=== PATIENT | male | born 1940 | race Caucasian/White ===

== ENCOUNTER 2021-03-10 11:21 | Emergency (ER) | payer MEDICARE, OTHER ==
[~2021-03-10 11:21] MED LIST: AMARYL2 MG PO; AMLODIPINE BES2.5 MG PO; ASPIRIN CHEWABL81 MG PO; FINASTERIDE5 MG PO; METFORMIN HCL500 M3 PO; METOPROLOL SUCC25 MG PO; PRAVASTATIN SOD40 MG PO
[2021-03-10 13:10] LABS: BILIRUBIN NEGATIVE (NEGATIVE); BLOOD NEGATIVE Ery/uL (NEGATIVE); COLOR YELLOW (YELLOW); GLUCOSE (U) NORMAL (NORMAL); LEUKOCYTES 2+ Leu/uL (NEGATIVE); NITRITE POSITIVE (NEGATIVE); PROTEIN NEGATIVE (NEGATIVE); SPECIFIC GRAVITY 1.025 (1.001-1.030); UROBILINOGEN 0.2 mg/dL (0.2-1.0); pH 6.5 (5.0-9.0)
[2021-03-10 13:11] LABS: CLARITY HAZY (CLEAR)
[2021-03-10 13:15] LABS: BASOPHIL 0.2 % (0-2); EOSINOPHIL 0.3 % (0-7); HCT 37.2 % (42.0-52.0); HGB 12.4 g/dl (13.2-18.0); LYMPHOCYTE 20.5 % (15-48); MCH 31.7 pg (25.0-31.0); MCHC 33.3 g/dL (32.0-36.0); MCV 95.1 fL (78.0-100.0); MPV 9.6 fL (6.0-9.5); NEUTROPHIL 71.4 % (41-80); NRBC 0; PLT 179 K/uL (150-400); RBC 3.91 M/uL (4.70-6.00); RDW 12.7 % (11.5-14.0); WBC 6.5 K/uL (4.0-10.5)
[2021-03-10 13:18] LABS: URINARY WBC 20-50
[2021-03-10 13:19] LABS: BACTERIA TRACE
[2021-03-10 14:21] LABS: CREATININE 0.83 mg/dL (0.67-1.17); POTASSIUM 3.8 mmol/L (3.5-5.1)
== END 2021-03-10 15:55 | disposition home or self-care (01) ==
LOC: FER 11:21
PROVIDERS: Nurse Practitioner Family
DX: N39.0 Urinary tract infection, site not specified (principal); I10 Essential (primary) hypertension
CPT/HCPCS: 36415; 80048; 81001; 83605; 85025; 99284

== ENCOUNTER 2021-05-01 11:50 | Emergency (ER) | payer MEDICARE, OTHER ==
[2021-05-01 13:46] LABS: BASOPHIL 0.2 % (0-2); EOSINOPHIL 0.5 % (0-7); HCT 40.5 % (42.0-52.0); HGB 13.8 g/dl (13.2-18.0); LYMPHOCYTE 22.2 % (15-48); MCH 32.4 pg (25.0-31.0); MCHC 34.1 g/dL (32.0-36.0); MCV 95.1 fL (78.0-100.0); MONOCYTE 5.2 % (0-12); MPV 9.5 fL (6.0-9.5); NEUTROPHIL 71.3 % (41-80); NRBC 0; PLT 178 K/uL (150-400); RBC 4.26 M/uL (4.70-6.00); RDW 12.6 % (11.5-14.0); WBC 8.3 K/uL (4.0-10.5)
[2021-05-01 14:09] LABS: BUN/CREAT RATIO (CALC) 16.7 RATIO; CREATININE 0.72 mg/dL (0.67-1.17); POTASSIUM 4.3 mmol/L (3.5-5.1)
[2021-05-01] MEDS ORDERED: CEPHALEXIN500 MG PO (14:54)
== END 2021-05-01 15:22 | disposition home or self-care (01) ==
LOC: FER 11:50
PROVIDERS: Emergency Medicine
DX: N39.0 Urinary tract infection, site not specified (principal); E11.9 Type 2 diabetes mellitus without complications; Z88.5 Allergy status to narcotic agent
CPT/HCPCS: 36415; 80048; 85025; 87040; 99283; J0696

== ENCOUNTER 2021-05-12 14:39 | Day surgery (SDCO) | payer MEDICARE, OTHER ==
[~2021-05-12] VITALS: Ht 170.2 cm; Wt 82.2 kg
[~2021-05-12 14:39] MED LIST changes: +CEPHALEXIN500 MG PO
== END 2021-05-12 22:07 | disposition home or self-care (01) ==
LOC: FICU 14:39 → FOD 14:39 → FICU 14:41
PROVIDERS: ADMIT Internal Medicine
DX: N39.0 Urinary tract infection, site not specified (principal)
CPT/HCPCS: G0378; J0692

== ENCOUNTER 2021-11-16 11:54 | Emergency (ER) | payer MEDICARE, OTHER ==
[2021-11-16 13:14] LABS: BASOPHIL 0.3 % (0-2); EOSINOPHIL 0.4 % (0-7); HCT 38.3 % (42.0-52.0); HGB 12.8 g/dl (13.2-18.0); LYMPHOCYTE 27.3 % (15-48); MCH 31.8 pg (25.0-31.0); MCHC 33.4 g/dL (32.0-36.0); MCV 95.3 fL (78.0-100.0); MONOCYTE 5.5 % (0-12); MPV 9.5 fL (6.0-9.5); NEUTROPHIL 65.8 % (41-80); NRBC 0; PLT 184 K/uL (150-400); RBC 4.02 M/uL (4.70-6.00); RDW 12.6 % (11.5-14.0); WBC 7.1 K/uL (4.0-10.5)
[2021-11-16 13:17] LABS: INR 0.98 (0.9-1.2); PROTHROMBIN TIME 12.7 SECONDS (11.9-13.9); PTT 26.6 SECONDS (24.9-34.6)
[2021-11-16 13:25] LABS: IRON % SATURATION 27.7 %SAT (20-50)
[2021-11-16 13:46] LABS: ALKALINE PHOSHATASE 101 U/L (46-116); ALT 33 U/L (16-63); AST 22 U/L (15-37); BILIRUBIN - TOTAL 0.3 mg/dL (0.2-1.0); BUN 11 mg/dL (7-18); BUN/CREAT RATIO (CALC) 15.3 RATIO; CHLORIDE 100 mmol/L (98-107); CO2 (BICARBONATE) 31 mmol/L (21-32); CREATININE 0.72 mg/dL (0.67-1.17); GLOBULIN (CALCULATION) 3.1 g/dL; GLUCOSE 169 mg/dL (74-106); MAGNESIUM 1.5 mg/dL (1.8-2.4); POTASSIUM 4.4 mmol/L (3.5-5.1); TOTAL PROTEIN 6.1 g/dL (6.4-8.2)
[2021-11-16 13:52] LABS: C-REACTIVE PROTEIN < 0.20 mg/dL (<=0.90)
[2021-11-16 13:58] LABS: BILIRUBIN NEGATIVE (NEGATIVE); BLOOD NEGATIVE Ery/uL (NEGATIVE); CLARITY CLEAR (CLEAR); COLOR YELLOW (YELLOW); GLUCOSE (U) NORMAL (NORMAL); LEUKOCYTES NEGATIVE Leu/uL (NEGATIVE); NITRITE NEGATIVE (NEGATIVE); PROTEIN NEGATIVE (NEGATIVE); UROBILINOGEN 0.2 mg/dL (0.2-1.0); pH 7.5 (5.0-9.0)
[2021-11-16 14:04] LABS: MARIJUANA (THC) NEGATIVE (NEGATIVE)
[2021-11-16 14:05] LABS: AMPHETAMINES NEGATIVE (NEGATIVE); BARBITURATES NEGATIVE (NEGATIVE); ECSTASY (MDMA) NEGATIVE (NEGATIVE); METHADONE NEGATIVE (NEGATIVE); OPIATES NEGATIVE (NEGATIVE); OXYCODONE NEGATIVE (NEGATIVE)
== END 2021-11-16 15:27 | disposition home or self-care (01) ==
LOC: FER 11:54
PROVIDERS: Emergency Medicine
DX: F05 Delirium due to known physiological condition (principal); Z20.822 Contact with and (suspected) exposure to COVID-19; Z88.5 Allergy status to narcotic agent
CPT/HCPCS: 36415; 70450; 80053; 80305; 81003; 82140; 83540; 83550; 83735; 83880; 84145; 84439; 84443; 84484; 85025; 85610; 85730; 86140; 93005; G0480; U0002

== ENCOUNTER 2021-12-09 09:12 | Emergency (ER) | payer MEDICARE, OTHER ==
[2021-12-09 10:31] LABS: BILIRUBIN NEGATIVE (NEGATIVE); BLOOD NEGATIVE Ery/uL (NEGATIVE); CLARITY CLEAR (CLEAR); COLOR YELLOW (YELLOW); GLUCOSE (U) NORMAL (NORMAL); LEUKOCYTES 2+ Leu/uL (NEGATIVE); NITRITE NEGATIVE (NEGATIVE); PROTEIN NEGATIVE (NEGATIVE); SPECIFIC GRAVITY 1.025 (1.001-1.030); UROBILINOGEN 0.2 mg/dL (0.2-1.0)
[2021-12-09 10:40] LABS: BASOPHIL 0.3 % (0-2); EOSINOPHIL 0.7 % (0-7); HCT 35.4 % (42.0-52.0); HGB 11.8 g/dl (13.2-18.0); LYMPHOCYTE 20.3 % (15-48); MCH 31.5 pg (25.0-31.0); MCHC 33.3 g/dL (32.0-36.0); MCV 94.4 fL (78.0-100.0); MONOCYTE 6.7 % (0-12); MPV 9.3 fL (6.0-9.5); NRBC 0; PLT 227 K/uL (150-400); RBC 3.75 M/uL (4.70-6.00); RDW 12.7 % (11.5-14.0); WBC 6.9 K/uL (4.0-10.5)
[2021-12-09 10:51] LABS: ALBUMIN 2.8 g/dL (3.4-5.0); BACTERIA 1+; BILIRUBIN - TOTAL 0.2 mg/dL (0.2-1.0); BUN/CREAT RATIO (CALC) 10.8 RATIO; CREATININE 0.74 mg/dL (0.67-1.17); GLOBULIN (CALCULATION) 3.7 g/dL; MUCOUS TRACE; TOTAL PROTEIN 6.5 g/dL (6.4-8.2)
[2021-12-09 11:08] LABS: CORONAVIRUS 2019 SARS-COV-2 NEGATIVE (NEGATIVE); INFLUENZA A NAA NEGATIVE (NEGATIVE)
[2021-12-09] MEDS ORDERED: CEFDINIR300 MG PO (11:23)
== END 2021-12-09 11:45 | disposition home or self-care (01) ==
LOC: FER 09:12
PROVIDERS: Internal Medicine
DX: N39.0 Urinary tract infection, site not specified (principal); G93.41 Metabolic encephalopathy; G82.20 Paraplegia, unspecified; Z20.822 Contact with and (suspected) exposure to COVID-19
CPT/HCPCS: 36415; 80053; 81001; 84145; 85025; J0696; U0002